=== PATIENT | male | born 1950 ===

== ENCOUNTER 2019-06-04 07:09 | Outpatient (CLI) | payer OTHER | END 2019-06-04 07:12 | disposition home or self-care (01) | LOC: SONOGRAMA 07:09 → MAMO-SONO 08:15 | DX: M65.811 Other synovitis and tenosynovitis, right shoulder (principal); M65.812 Other synovitis and tenosynovitis, left shoulder ==

== ENCOUNTER → 2019-06-30 | Emergency (ER) | payer OTHER ==
[~2019-06-30] VITALS: Ht 152.4 cm; Wt 74.8 kg
[~2019-06-30] MED LIST: CLONAZEPAM0.5 M1; FOLTANX TABLET1 EACH; LIPOFEN50 MG; PROTONIX40 MG PO; TOPROL XL50 M1; ZESTRIL30 MG; ZETIA10 MG; ZOFRAN4 MG PO
== END | disposition home or self-care (01) ==
LOC: EDSEX 03:35 → ER 03:35
DX: K21.9 Gastro-esophageal reflux disease without esophagitis (principal)